=== PATIENT | female | born 1990 | race Asian ===

== ENCOUNTER 2016-10-29 23:33 | Emergency (ER) | payer MEDICAID ==
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
== END 2016-10-30 00:30 | disposition still patient (30) ==
LOC: ER 23:33
DX: S39.91XA Unspecified injury of abdomen, initial encounter (principal); F17.200 Nicotine dependence, unspecified, uncomplicated; X58.XXXA Exposure to other specified factors, initial encounter; Y93.89 Activity, other specified; Y92.488 Other paved roadways as the place of occurrence of the external cause; Y99.8 Other external cause status
CPT/HCPCS: Z7502